=== PATIENT | female | born 1990 | race Caucasian/White ===

== ENCOUNTER → 2019-05-25 | Outpatient (CLI) | payer SELFPAY | PROVIDERS: Family Provider Nurse Practitioner Family; Visit Provider Nurse Practitioner Family | DX: J84.10 Pulmonary fibrosis, unspecified (principal); R91.8 Other nonspecific abnormal finding of lung field; R05 Cough | CPT/HCPCS: 71250 ==

== ENCOUNTER 2019-06-10 21:25 | Emergency (ER) | payer SELFPAY ==
[2019-06-10 21:29] VITALS: BP 126/85; PULSE 89; RESP 18; TEMP 37; O2SAT 98; BMI 22.8
--- NOTE | 2019-06-10 21:34 | ED_ITS ---
HPI - Chest Pain General: Chief Complaint: Chest Pain Stated Complaint: chest discomfort Time Seen by Provider: 06/10/19 21:28 History of Present Illness: HPI narrative: Patient is a 28-year-old female comes to the ED with right sided chest pain. She states that it started on Friday night and then it got worse at 4 PM today. She denies any injury or trauma to the chest. Denies any palpitations or shortness of breathing. Patient states she did have some upper respiratory symptoms that have since resolved about a week ago. Patient states she has had a chronic cough for the last 8 months and recently had chest CT performed about 2-[address] she said showed that she had some nodules on her lungs and they recommended that she does a follow-up chest CT in a year to see how the nodules have changed. Denies any fever, abdominal pain, nausea, vomiting, dysuria, hematuria, diarrhea, constipation, blood in the stool, numbness or tingling, or weakness to extremities. Review of Systems General: Reports: 10 or more systems reviewed and unremarkable except in HPI and below PFSH ED PFSH: Statuses (acute, chronic, etc) shown below reflect problem list status as previously entered and may not be historically accurate Social History Smoking and tobacco status: current every day smoker Physical Exam Narrative: EXAM NARRATIVE: Patient is a 28-year-old female who appears in no acute distress or pain upon examination. Const: COMMON NORMALS: oriented x3 HENMT: COMMON NORMALS: normocephalic HEAD & SCALP: normocephalic MOUTH: oral and palatal mucosa normal THROAT: posterior oropharynx normal and uvula midline Neck/C-Spine: COMMON NORMALS: supple GENERAL: Yes normal visual inspection Chest: CHEST: Yes tenderness (Mild right lateral anterior chest wall ) Resp: COMMON NORMALS: normal respiratory effort, no retractions, no use of accessory muscles and clear to auscultation bilaterally AUSCULTATION: clear to auscultation bilaterally Cardio: COMMON NORMALS: regular rate, regular rhythm, S1 normal heart sound, S2 normal heart sound, no gallops, no clicks, no murmurs and peripheral pulses 2+ throughout RATE: regular rate RHYTHM: regular rhythm HEART SOUNDS: S1 normal and S2 normal PERIPHERAL PULSES: pulses 2+ throughout GI: COMMON NORMALS: normal to inspection, nondistended, normoactive bowel sounds, soft to palpation, non-tender and no masses PALPATION: Yes soft : COMMON NORMALS: Yes no CVA tenderness BLADDER/KIDNEY EXAM: Yes no CVA tenderness Back/Pelvis: COMMON NORMALS: no CVA tenderness Neuro: COMMON NORMALS: oriented x3 and moves all extremities Course ED course: EKG showed normal sinus rhythm and troponin level were negative.Chest pain had been going on for several days prior to ED visit tonight. Ruling out any cardiac cause of chest pain. Vital Signs: Vital signs: Vital Signs Temperature 98.6 F 06/10/19 21:29 Pulse Rate 85 06/10/19 23:26 Respiratory Rate 16 06/10/19 23:26 Blood Pressure 131/80 06/10/19 23:26 Pulse Oximetry 98 06/10/19 23:26 MDM - Chest Pain Lab Data: Attestation: I reviewed the patient's lab results. Labs: Lab Results 06/10/19 06/10/19 06/10/19 Range/Units 22:06 22:06 22:06 WBC 12.8 H (4.0-10.0) 10^3/ uL RBC 4.46 (4.1-5.3) 10^6/u L Hgb 13.2 (11.5-15.3) g/dL Hct 38.6 (37.0-47.0) % MCV 86.5 (81-99) fL MCH 29.6 (28.0-34.0) pg MCHC 34.2 (30.0-36.0) g/dL RDW 12.4 (12.1-15.1) % Plt Count 279 (130-400) 10^3/c mm MPV 10.6 H (7.4-10.4) fL Neut % (Auto) 64.0 % Lymph % (Auto) 26.0 % [place] % (Auto) 6.3 % Eos % (Auto) 2.8 % Baso % (Auto) 0.5 % Neut # (Auto) 8.2 H (1.8-7.7) 10^3/u L Lymph # (Auto) 3.3 (0.8-4.8) 10^3/u L [place] # (Auto) 0.8 (0.2-0.9) 10^3/u L Eos # (Auto) 0.4 (0.0-0.8) 10^3/u L Baso # (Auto) 0.1 (0.0-0.1) 10^3/u L Nucleated RBC % (a uto) 0 % Nucleated RBCs # 0.0 /100WBC Sodium 137 (136-145) mmol/L Potassium 3.0 L (3.5-5.1) mmol/L Chloride 100 (98-107) mmol/L Carbon Dioxide 24 (22-29) mmol/L Anion Gap 16.0 (5-19) BUN 11 (6-20) mg/dL Creatinine 0.8 (0.5-0.9) mg/dL GFR Calculation 84.2 L (90-130) mL/min Glucose 104 (74-109) mg/dL Calcium 9.9 (8.6-10.0) mg/Dl Total Bilirubin 0.2 (0.15-1.2) mg/dL AST 41 H (0-32) U/L ALT 30 (0-33) U/L Alkaline Phosphata se 77 (35-105) IU/L Troponin T Baselin e 7 (0-10) ng/mL Total Protein 6.9 (6.6-8.7) g/dL Albumin 4.5 (3.5-5.2) g/dL Globulin 2.4 (1.3-4.6) g/dL Imaging Data^: CXR: Attestation: I personally reviewed and interpreted this imaging study as follows: My impression: No acute findings. EKG Data^: EKG 1: Attestation: I personally reviewed and interpreted this EKG as follows: EKG interpretation date: 06/10/19 Interpretation: Normal sinus rhythm with P waves identified throughout. Rate 77 bpm, no ST elevation or depression seen. Computer generated interpretation: Normal sinus rhythm. Discharge Plan Discharge Patient Disposition: Home, Self-Care Clinical Impression: Acute costochondritis Condition: Stable Prescriptions: No Action gabapentin 300 mg Capsule 300 mg PO BID RF: 0 Zoloft 50 mg Tablet 50 mg PO DAILY RF: 0 Discharge Orders: Discharge Order (Routine); Ordered 06/10/19 Ordered By: Madi Paez Referrals: Emily Armendariz APN [Family Provider] - Ike Hall, [employer] [Primary Care Provider] - Discharge Diet: Regular Discharge Activity: Resume usual activity Activity Restrictions/Additional Instructions: Call your primary care provider tomorrow and set up appointment in about 7 days for reevaluation. Apply ice and/or moist heat on sore area of chest. Take ibuprofen or naproxen as needed for pain and inflammation. Drink plenty of fluids. Discharge Date/Time: 06/10/19 23:27 Coding Level of Care Code ED Senior Paralegal for [employer]
--- NOTE | 2019-06-10 21:45 | PC.NURSE ---
ekg performed @4 by a tech and shown to physician.
--- NOTE | 2019-06-10 22:02 | XR_ITS ---
WS: [id number] Portable AP upright chest, 06/10/2019 Clinical Data: chest pain Comparison: PA and lateral chest, 03/18/2019. Findings: No nodules, masses or effusions are seen. The heart is normal. The pulmonary vascularity is not increased. No pneumonia or pneumothorax is seen. Monitor leads on the chest wall. There are clip s in the right upper quadrant from a cholecystectomy. XR/XR chest 1V portable [id number] Impression: Negative chest.
--- NOTE | 2019-06-10 22:03 | ECG_ITS ---
Measurements Intervals [place] Rate: 77 P: 69 OK: 147 QRS: 65 QRSD: 92 T: 64 QT: 377 QTc: 428 SINUS RHYTHM No previous ECG available for comparison Electronically Signed On 06-11-2019 10:50:58 [employer] SCOREBOARD OPERATOR by Mandi Claros M.D. [id number]
[2019-06-10 22:10] VITALS: BP 128/89; PULSE 71; RESP 16; O2SAT 96
[2019-06-10 22:19] LABS: Basophils # 0.1 10^3/uL (0.0-0.1); Basophils % 0.5 %; Eosinophils # 0.4 10^3/uL (0.0-0.8); Eosinophils % 2.8 %; Hematocrit 38.6 % (37.0-47.0); Hemoglobin 13.2 g/dL (11.5-15.3); Lymphocytes # 3.3 10^3/uL (0.8-4.8); Mean Corpuscular HGB Conc 34.2 g/dL (30.0-36.0); Mean Corpuscular Hemoglobin 29.6 pg (28.0-34.0); Mean Corpuscular Volume 86.5 fL (81-99); Mean Platelet Volume 10.6 fL (7.4-10.4); Monocytes # 0.8 10^3/uL (0.2-0.9); Monocytes % 6.3 %; Neutrophils # 8.2 10^3/uL (1.8-7.7); Nucleated Red Blood Cells % 0 %; Platelet Count 279 10^3/cmm (130-400); Red Blood Count 4.46 10^6/uL (4.1-5.3); Red Cell Distribution Width 12.4 % (12.1-15.1); White Blood Count 12.8 10^3/uL (4.0-10.0)
[2019-06-10] MEDS: ketorolac 30 mg/mL INJ IM (22:24)
[2019-06-10 22:33] LABS: Alanine Aminotransferase 30 U/L (0-33); Albumin Level 4.5 g/dL (3.5-5.2); Alkaline Phosphatase 77 IU/L (35-105); Aspartate Amino Transferase 41 U/L (0-32); Blood Urea Nitrogen 11 mg/dL (6-20); Calcium 9.9 mg/Dl (8.6-10.0); Carbon Dioxide 24 mmol/L (22-29); Chloride 100 mmol/L (98-107); Globulin 2.4 g/dL (1.3-4.6); Glomerular Filtration Rate 84.2 mL/min (90-130); Glucose 104 mg/dL (74-109); Sodium 137 mmol/L (136-145); Total Bilirubin 0.2 mg/dL (0.15-1.2); Total Protein 6.9 g/dL (6.6-8.7)
[2019-06-10 22:36] LABS: Troponin(5th) Baseline 7 ng/mL (0-10)
[2019-06-10 23:26] VITALS: BP 131/80; PULSE 85; RESP 16; O2SAT 98
== END 2019-06-10 23:27 | disposition home or self-care (01) ==
PROVIDERS: Emergency Provider Physician Assistant; Family Provider Nurse Practitioner Family; PCP Nurse Practitioner
DX: M94.0 Chondrocostal junction syndrome [Tietze] (principal); F17.210 Nicotine dependence, cigarettes, uncomplicated
CPT/HCPCS: 71045; 80053; 84484; 85025; 93005; 96372; 99281; J1885

== ENCOUNTER → 2019-09-23 17:16 | Outpatient (BNVA) | payer SELFPAY | PROVIDERS: PCP Nurse Practitioner; Visit Provider Nurse Practitioner Family | DX: R51 Headache (principal); N39.0 Urinary tract infection, site not specified; R07.1 Chest pain on breathing; N30.90 Cystitis, unspecified without hematuria | CPT/HCPCS: 81000 ==

== ENCOUNTER → 2019-11-03 11:35 | Outpatient (BNVA) | payer SELFPAY | PROVIDERS: PCP Family Medicine; Visit Provider Family Medicine | DX: R05 Cough (principal) | CPT/HCPCS: 71046 ==

== ENCOUNTER → 2020-06-06 15:34 | Outpatient (BNVA) | payer SELFPAY | PROVIDERS: PCP Family Medicine; Visit Provider Family Medicine | DX: R07.9 Chest pain, unspecified (principal) | CPT/HCPCS: 71046 ==

== ENCOUNTER → 2020-11-24 00:01 | Outpatient (BNVA) | payer SELFPAY | PROVIDERS: PCP Family Medicine; Visit Provider Nurse Practitioner Family | DX: L02.31 Cutaneous abscess of buttock (principal); Z68.25 Body mass index [BMI] 25.0-25.9, adult; F17.210 Nicotine dependence, cigarettes, uncomplicated | CPT/HCPCS: 87070; 87075; 87077; 87184; 87205 ==

== ENCOUNTER → 2021-06-06 16:23 | Outpatient (BNVA) | payer SELFPAY | PROVIDERS: PCP Family Medicine; Visit Provider Family Medicine | DX: N20.0 Calculus of kidney (principal) | CPT/HCPCS: 81003; 87077; 87086; 87184 ==

== ENCOUNTER → 2022-06-04 14:29 | Outpatient (BNVA) | payer SELFPAY | PROVIDERS: PCP Family Medicine; Visit Provider Family Medicine | DX: M79.631 Pain in right forearm (principal) | CPT/HCPCS: 73090 ==

== ENCOUNTER → 2022-12-23 16:20 | Outpatient (BNVA) | payer SELFPAY | PROVIDERS: PCP Family Medicine; Visit Provider Obstetrics & Gynecology | DX: N92.1 Excessive and frequent menstruation with irregular cycle (principal); R30.0 Dysuria | CPT/HCPCS: 87086; 87624; 88305 ==

== ENCOUNTER → 2023-05-05 14:31 | Outpatient (BNVA) | payer SELFPAY | PROVIDERS: PCP Family Medicine; Visit Provider Family Medicine | DX: M79.661 Pain in right lower leg (principal); S82.831D Other fracture of upper and lower end of right fibula, subsequent encounter for closed fracture with routine healing; X58.XXXD Exposure to other specified factors, subsequent encounter | CPT/HCPCS: 73590 ==

== ENCOUNTER 2024-11-12 19:44 | Emergency (ER) | payer SELFPAY ==
[2024-11-12 19:55] VITALS: BP 116/79; PULSE 103; RESP 16; TEMP 36.8; O2SAT 97; BMI 26.5
[2024-11-12 21:27] LABS: Bilirubin Urine Negative (Negative); Blood Urine Negative (Negative); Glucose Urine UA Negative (Normal); HCG Qualitative Urine. Negative (Negative); Ketones Urine Trace (Negative); Leukocyte Esterase Urine Negative (Negative); Nitrate Urine Negative (Negative); Protein Urine Negative (Negative); Specific Gravity, Urine 1.024 (1.005-1.030); Urine Appearance Clear (CLEAR); Urine Color Yellow (Yellow); pH Urine 5.5 (5-7)
[2024-11-12 21:32] LABS: Add Urine Microscopic? YES; Bacteria Urine None Seen /hpf; Hyaline Casts Urine 0-4 /lpf; RBC Urine 0-2 /hpf (0-2); Squamous Epithelial Cell Urine 0-5 /hpf (0-5); WBC Urine 0-5 /hpf (0-5)
[2024-11-12 22:11] LABS: Basophils % 0.4 %; Eosinophils # 0.3 10^3/uL (0.0-0.8); Eosinophils % 2.7 %; Hematocrit 40.6 % (36-47); Lymphocytes % 19.1 %; Mean Corpuscular Hemoglobin 27.8 pg (27-33); Mean Corpuscular Volume 84.2 fl (85-98); Mean Platelet Volume 10.2 fL (7.4-10.4); Monocytes # 0.9 10^3/uL (0.2-0.9); Monocytes % 8.4 %; Neutrophils # 7.13 10^3/uL (1.8-7.7); Neutrophils % 68.8 %; Nucleated Red Blood Cells % 0 %; Platelet Count 302 10^3/cmm (157-399); Red Blood Count 4.82 10^6/uL (3.85-5.65); White Blood Count 10.36 10^3/uL (3.29-11.43)
--- NOTE | 2024-11-12 22:11 | ED_ITS ---
HPI - Abdominal Pain 2 General: Chief Complaint: Abdominal Pain Stated Complaint: flank and abd burning into groin Time Seen by Provider: 11/12/24 21:57 History of Present Illness: Patient is a 34-year-old female that complains of pain in her left flank around to front of abdomen mid epigastrum and LUQ with nausea/emesis Patient has approximately half pint of liquor daily. No previous history of pancreatitis. Initial urine analysis was benign. Laboratory data is pending. Associated Symptoms: Denies chills, fever(s), nausea and vomiting Related Data Previous Rx's ?Medication ?Instructions ?Recorded clonazepam 1 mg tablet 1 mg PO BID #60 tabs 4 tamsulosin 0.4 mg capsule (Flomax) 0.4 mg PO DAILY #14 caps 11/28/23 diclofenac sodium 75 mg 75 mg PO BID #60 tabs tablet,delayed release sertraline 100 mg tablet See Rx Instructions .Route 0 08/24/24 .COMPLEX #60 tabs trazodone 150 mg tablet See Rx Instructions .Route 0 08/24/24 .COMPLEX #30 tabs ondansetron 4 mg disintegrating 4 mg PO Q8H PRN nausea and 11/13/24 tablet vomiting 4 days #10 tabs Allergies Allergy/AdvReac Type Severity Reaction Status Date / Time No Known Allergies Allergy Verified 11/12/24 20:01 Review of Systems 2 General: Reports: 10 or more systems reviewed and unremarkable except in HPI and below Const: Denies: fever(s) or chills Eyes: Denies: change in vision or blurry vision ENMT: Denies: throat pain or mouth pain Card: Denies: chest pain or palpitations Resp: Denies: dyspnea or non-productive cough GI: Denies: abdominal pain, nausea or vomiting : Denies: flank pain or difficulty voiding Musc: Denies: neck pain, back pain or extremity pain Skin/Breast: Denies: rash or pruritus Neuro: Denies: headache(s) or numbness in extremities Psych: Denies: anxiety or depression Endo: Denies: polyuria [place]/Lymph: Denies: easy bruising or easy bleeding PFSH ED 2 PFSH: Medical History delivery delivered Kidney stone Surgical History History of cholecystectomy History of renal stent History of lithotripsy S/P tonsillectomy Family History Mother Hypertension Denies family history of Colon cancer Ovarian cancer Diabetes Heart disease Hypercholesteremia Breast cancer Uterine cancer Thyroid disease Stroke Social History Smoking and tobacco/nicotine status: current every day tobacco/nicotine user Female Reproductive History: Para: 5 Spontaneous abortions: Yes (1) Physical Exam 2 Const: COMMON NORMALS: no acute distress, average body habitus, patient oriented x3, no limitations and healthy appearing GENERAL APPEARANCE: well kempt HENMT: COMMON NORMALS: normocephalic and atraumatic HEAD & SCALP: n ormocephalic and atraumatic Chest: COMMONS NORMALS: normal inspection of the chest and normal palpation of the breasts BREAST/AXILLA PALPATION: Yes normal palpation of the breasts Resp: COMMON NORMALS: normal respiratory effort and clear to auscultation bilaterally AUSCULTATION: clear to auscultation bilaterally Cardio: COMMON NORMALS: regular rate and regular rhythm RATE: regular rate RHYTHM: regular rhythm GI: COMMON NORMALS: Normal to inspection, nondistended, normoactive bowel sounds present and Soft to palpation PALPATION: Yes Soft to palpation : BLADDER/KIDNEY EXAM: Yes CVA tenderness on the left Back/Pelvis: GENERAL BACK: Yes CVA tenderness Extremity: COMMON NORMALS: normal to inspection, full ROM and capillary refill normal Neuro: COMMON NORMALS: patient oriented x3 Psych: COMMON NORMALS: mental status grossly normal and Normal thought process present APPEARANCE: Yes grossly normal and Yes well kempt ATTITUDE: Yes calm ACTIVITY/MOTOR BEHAVIOR: Yes appropriate eye contact THOUGHT PROCESS: Normal thought process present Skin: COMMON NORMALS: no rashes or lesions noted and no wounds GENERAL SKIN EXAM: no rashes or lesions noted Course 2 Vital Signs: Vital signs: Vital Signs Temperature 98.3 F 11/12/24 19:55 Pulse Rate 103 H 11/12/24 19:55 Respiratory Rate 16 11/12/24 19:55 Blood Pressure 116/79 11/12/24 19:55 Pulse Oximetry 97 11/12/24 19:55 Oxygen Delivery Me thod Room Air 11/12/24 19:55 MDM - Abdominal Pain Medical Decision Making Patient is 34-year-old female presents to ED with left flank and left abdominal pain. No physical exam findings of concern were noted, however given her flank pain, proceeded with CT of the abdomen pelvis that did not have any acute findings. Possibly increased stool burden. Discussed with patient. She will obtain stool softeners or laxatives [id number], utilize a clear then advancing to a full diet prior to advancing to a bland diet, and return to ED if further issues are noted. As far as her incidental finding of adrenal adenoma, she will follow-up with primary care for any additional concern. All of her questions were answered to her satisfaction. Lab Data 11/12/24 22:05 11/12/24 22:05 Labs/Radiology: Radiology Impressions Abdomen/Pelvis CT 11/12/24 23:01 IMPRESSION: 1. 3 mm nonobstructive left nephrolith. 2. Additional chronic and incidental findings as above. Laboratory Results WBC 10.36 10^3/uL (3.29-11.43) 11/12/24 22:05 RBC 4.82 10^6/uL (3.85-5.65) 11/12/24 22:05 Hgb 13.40 g/dL (11.27-16.99) 11/12/24 22:05 Hct 40.6 % (36-47) 11/12/24 22:05 MCV 84.2 fl (85-98) L 11/12/24 22:05 MCH 27.8 pg (27-33) 11/12/24 22:05 MCHC 33.0 g/dL (30-55) 11/12/24 22:05 RDW 15.0 % (12.1-15.1) 11/12/24 22:05 Plt Count 302 10^3/cmm (157-399) 11/12/24 22:05 MPV 10.2 fL (7.4-10.4) 11/12/24 22:05 Neut % (Auto) 68.8 % 11/12/24 22:05 Lymph % (Auto) 19.1 % 11/12/24 22:05 [place] % (Auto) 8.4 % 11/12/24 22:05 Eos % (Auto) 2.7 % 11/12/24 22:05 Baso % (Auto) 0.4 % 11/12/24 22:05 Neut # (Auto) 7.13 10^3/uL (1.8-7.7) 11/12/24 22:05 Lymph # (Auto) 2.0 10^3/uL (0.8-4.8) 11/12/24 22:05 [place] # (Auto) 0.9 10^3/uL (0.2-0.9) 11/12/24 22:05 Eos # (Auto) 0.3 10^3/uL (0.0-0.8) 11/12/24 22:05 Baso # (Auto) 0.0 10^3/uL (0.0-0.1) 11/12/24 22:05 Nucleated RBC % (auto) 0 % 11/12/24 22:05 Nucleated RBCs # 0.0 /100WBC 11/12/24 22:05 Sodium 138 mmol/L (136-145) 11/12/24 22:05 Potassium 4.2 mmol/L (3.5-5.1) 11/12/24 22:05 Chloride 103 mmol/L (98-107) 11/12/24 22:05 Carbon Dioxide 25 mmol/L (22-29) 11/12/24 22:05 Anion Gap 14.2 (5-19) 11/12/24 22:05 BUN 9 mg/dL (6-20) 11/12/24 22:05 Creatinine 0.7 mg/dL (0.5-0.9) 11/12/24 22:05 GFR Calculation 94.7 mL/min (90-130) 11/12/24 22:05 Glucose 88 mg/dL (65-115) 11/12/24 22:05 Calculated Osmolality 284 mOsm/kg (285-295) L 11/12/24 22:05 Calcium 9.5 mg/dL (8.5-10.5) 11/12/24 22:05 Total Bilirubin 0.2 mg/dL (0.15-1.2) 11/12/24 22:05 AST 18 U/L (0-32) 11/12/24 22:05 ALT 14 U/L (0-33) 11/12/24 22:05 Alkaline Phosphatase 69 U/L (35-105) 11/12/24 22:05 Total Protein 7.0 g/dL (6.6-8.7) 11/12/24 22:05 Albumin 4.5 g/dL (3.5-5.2) 11/12/24 22:05 Globulin 2.5 g/dL (1.3-4.6) 11/12/24 22:05 Lipase 16 U/L (13-60) 11/12/24 22:05 HCG, Qual Negative (Negative) 11/12/24 21:18 Urine Color Yellow (Yellow) 11/12/24 21:18 Urine Appearance Clear (CLEAR) 11/12/24 21:18 Urine pH 5.5 (5-7) 11/12/24 21:18 Ur Specific [place] 1.024 (1.005-1.030) 11/12/24 21:18 Urine Protein Negative (Negative) 11/12/24 21:18 Urine Glucose (UA) Negative (Normal) 11/12/24 21:18 Urine Ketones Trace (Negative) 11/12/24 21:18 Urine Blood Negative (Negative) 11/12/24 21:18 Urine Nitrate Negative (Negative) 11/12/24 21:18 Urine Bilirubin Negative (Negative) 11/12/24 21:18 Urine Urobilinogen 1.0 mg/dL (Negative) 11/12/24 21:18 Ur Leukocyte Esterase Negative (Negative) 11/12/24 21:18 Urine RBC 0-2 /hpf (0-2) 11/12/24 21:18 Urine WBC 0-5 /hpf (0-5) 11/12/24 21:18 Ur Squamous Epith Cells 0-5 /hpf (0-5) 11/12/24 21:18 Amorphous Sediment Not Reportable 11/12/24 21:18 Urine Bacteria None seen /hpf (NONE) 11/12/24 21:18 Hyaline Casts 0-4 /lpf H 11/12/24 21:18 Ethyl Alcohol < 10 mg/dL (0-10) 11/12/24 22:05 All radiology interpretation(s) finalized by discharge Discharge Plan Discharge Patient Disposition: Home Clinical Impression: Gastroenteritis Adrenal adenoma Qualifiers: Laterality: left Qualified Code(s): D35.02 - Benign neoplasm of left adrenal gland Condition: Stable Prescriptions: New ondansetron 4 mg tablet,disintegrating 4 mg PO Q8H PRN (Reason: nausea and vomiting) 4 Days Qty: 10 0RF No Action lidocaine HCl [Xylocaine] 10 mg/mL (1 %) solution 2 ml IM ONCE Qty: 2 0RF ceftriaxone 1 gram recon soln 1 g IM ONCE Qty: 1 0RF tamsulosin [Flomax] 0.4 mg capsule 0.4 mg PO DAILY Qty: 14 0RF clonazepam 1 mg tablet 1 mg PO BID Qty: 60 1RF diclofenac sodium 75 mg tablet,delayed release (DR/EC) 75 mg PO BID Qty: 60 11RF sertraline 100 mg tablet See Rx Instructions .ROUTE .COMPLEX Qty: 60 11RF Dose Instruction: Take 2 tablets by mouth once daily Rx Instructions: Take 2 tablets by mouth once daily trazodone 150 mg tablet See Rx Instructions .ROUTE .COMPLEX Qty: 30 11RF Dose Instruction: TAKE 1 TABLET BY MOUTH AT BEDTIME Rx Instructions: TAKE 1 TABLET BY MOUTH AT BEDTIME Discharge Orders: Discharge ED (Routine); Ordered 11/13/24 Ordered By: Nadya Pabon Referrals: Ruthie Lainez FNP-C [Primary Care Provider, Family Practice] Discharge Diet: Advance as tolerated and Clear Liquid Patient Instructions: [place] Diet - Adult, Full Liquid Diet, Clear Liquid Diet (ED), Gastroenteritis (ED) Activity Restrictions/Additional Instructions: Follow a clear liquid diet initially for 24 hours, then full liquid diet if you tolerate the clear liquid, then a bland diet. This is over a 3-day period of time. Stool softener has been recommended to you. Probiotics may help as well. Return to ED if you are not passing gas, have worsening symptoms, or fevers. It is important you follow-up with your primary care physician. As we discussed, an adrenal adenoma which is a benign finding was found on radiology reports, however this is important to have this followed up at later juncture. 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
[2024-11-12 22:28] LABS: Lipase 16 U/L (13-60)
[2024-11-12 22:29] LABS: Alcohol Level < 10 mg/dL (0-10)
[2024-11-12 22:35] LABS: Alanine Aminotransferase 14 U/L (0-33); Albumin Level 4.5 g/dL (3.5-5.2); Alkaline Phosphatase 69 U/L (35-105); Anion Gap 14.2 (5-19); Aspartate Amino Transferase 18 U/L (0-32); Blood Urea Nitrogen 9 mg/dL (6-20); Calcium 9.5 mg/dL (8.5-10.5); Carbon Dioxide 25 mmol/L (22-29); Chloride 103 mmol/L (98-107); Creatinine Clr Calc Pharmacy 101.0391; Globulin 2.5 g/dL (1.3-4.6); Glomerular Filtration Rate 94.7 mL/min (90-130); Glucose 88 mg/dL (65-115); Osmolality Calculated 284 mOsm/kg (285-295); Potassium 4.2 mmol/L (3.5-5.1); Sodium 138 mmol/L (136-145); Total Bilirubin 0.2 mg/dL (0.15-1.2)
[2024-11-12] MEDS: ondansetron 2 mg/ML SDV 2 mL 4 MG IVP (22:52)
[2024-11-12] MEDS: acetaminophen 1,000 MG/100 ML PIGGYBACK 400 MG IV (22:52)
[2024-11-12] MEDS: sodium chloride 0.9% 1,000 ML 999 ML IV (22:52)
--- NOTE | 2024-11-12 23:01 | CTR_ITS ---
PROCEDURE INFORMATION: Exam: CT Abdomen And Pelvis Without Contrast Exam date and time: 11/12/2024 11:18 PM Age: 34 years old Clinical indication: Abdominal pain; Prior surgery; Surgery date: 6+ months; Surgery type: Gb. Tubal ligation. Csection. C/O left flank pain. History of ureterolithiasis requiring stenting. TECHNIQUE: Imaging protocol: Computed tomography of the abdomen and pelvis without contrast. Radiation optimization: All CT scans at this facility use at least one of these dose optimization techniques: automated exposure control; mA and/or kV adjustment per patient size (includes targeted exams where dose is matched to clinical indication); or iterative reconstruction. COMPARISON: CT chest wo con [id number] 05/25/2019 1:31 PM RADIATION DOSE METRICS: Total DLP (mGy-cm): 373.6 FINDINGS: Liver: Normal. No mass. Gallbladder and biliary ducts: Prior cholecystectomy without biliary ductal dilatation. Pancreas: Normal. No ductal dilation. Spleen: Normal. No splenomegaly. Adrenal glands: Stable subcentimeter hypodense left adrenal nodular thickening likely represents adenoma. Unremarkable right adrenal gland. Kidneys and ureters: 3 mm nonobstructive left lower nephrolith. Otherwise unremarkable. Stomach and bowel: Unremarkable. No bowel dilatation to suggest obstruction. Appendix: No evidence of appendicitis. Intraperitoneal space: Unremarkable. No free air. No significant fluid collection. Vasculature: Mild systemic atherosclerotic calcification without abdominal aortic aneurysm. Lymph nodes: Unremarkable. No enlarged lymph nodes. Urinary bladder: Unremarkable as visualized. Reproductive: Tampon within the vaginal canal. Otherwise unremarkable as visualized. Bones/joints: Unremarkable. No acute fracture. Soft tissues: Unremarkable. CT/CT abdomen pelvis wo con [id number] IMPRESSION: 1. 3 mm nonobstructive left nephrolith. 2. Additional chronic and incidental findings as above.
[2024-11-13] MEDS: ondansetron hcl ODT 4 mg Tab PO (01:39)
[2024-11-13] MEDS: ketorolac 30 mg/mL INJ 10 MG IVP (01:39)
[2024-11-13 01:56] VITALS: BP 124/85; PULSE 74; RESP 18; TEMP 36.7; O2SAT 97
== END 2024-11-13 01:58 | disposition home or self-care (01) ==
PROVIDERS: Emergency Medicine; Emergency Provider Physician Assistant; PCP Nurse Practitioner Family
DX: K52.9 Noninfective gastroenteritis and colitis, unspecified (principal); D35.02 Benign neoplasm of left adrenal gland; Z72.0 Tobacco use
CPT/HCPCS: 36415; 74176; 80053; 80307; 81001; 81025; 83690; 85025; 96365; 96375; 99285; J0131; J1885; J2405; J7030; Q0162